=== PATIENT | male | born 1990 | race Caucasian/White ===

== ENCOUNTER 2018-09-10 05:41 | Emergency (ER) | payer OTHER ==
[~2018-09-10] VITALS: Ht 167.6 cm; Wt 63.5 kg
[2018-09-10 05:44] VITALS: BP 127/47
[2018-09-10] MEDS ORDERED: BACTRIM DS TAB1 EACH PO (06:15)
== END 2018-09-10 06:30 | disposition home or self-care (01) ==
LOC: ER 05:41
DX: L02.511 Cutaneous abscess of right hand (principal); F17.210 Nicotine dependence, cigarettes, uncomplicated; J45.909 Unspecified asthma, uncomplicated

== ENCOUNTER 2019-03-04 09:01 | Emergency (ER) | payer OTHER ==
[~2019-03-04] VITALS: Ht 167.6 cm; Wt 63.5 kg
[~2019-03-04 09:01] MED LIST: BACTRIM DS TAB1 EACH PO
[2019-03-04 10:17] LABS: ABSOLUTE NEUTROPHILS 12.9 thou/uL (1.4-8.2); BASOPHILS 0.4 % (0.0-2.0); EOSINOPHILS 0.2 % (0.0-3.0); HEMATOCRIT 42.2 % (42.0-52.0); HEMOGLOBIN 14.9 gm/dL (14.0-18.0); LYMPHOCYTES 3.5 % (24.0-44.0); MCH 30.9 pg (26.0-34.0); MCHC 35.2 g/dL (28.0-37.0); MCV 87.9 fL (80.0-100.0); MONOCYTES 11.9 % (1.0-8.0); PLATELET COUNT 159 thou/uL (150-400); RBC 4.81 mil/uL (4.50-6.00); RDW 13.5 % (10.5-14.5); WBC 15.3 thou/uL (4.0-11.0)
[2019-03-04 10:29] LABS: CALCIUM 9.4 mg/dL (8.5-10.1); CREATININE 1.2 mg/dL (0.7-1.3); POTASSIUM 4.4 mmol/L (3.5-5.1)
[2019-03-04 10:36] LABS: ALBUMIN 3.7 g/dL (3.4-5.0); DIRECT BILIRUBIN 0.2 mg/dL (<0.1-0.3); TOTAL PROTEIN 7.4 g/dL (6.4-8.2)
[2019-03-04 11:32] LABS: URINE BILIRUBIN NEGATIVE (Negative); URINE BLOOD NEGATIVE (Negative); URINE CLARITY CLEAR; URINE COLOR YELLOW; URINE GLUCOSE-RANDOM* NEGATIVE (Negative); URINE KETONES NEGATIVE (Negative); URINE LEUKOCYTES-REFLEX NEGATIVE (Negative); URINE NITRITE-REFLEX NEGATIVE (Negative); URINE PROTEIN (DIPSTICK) TRACE (Negative)
[2019-03-04 11:40] LABS: AMP/METHAMP POSITIVE (Negative); BARBITURATES Negative (Negative); BENZODIAZEPINES Negative (Negative); COCAINE Negative (Negative); METHADONE Negative (Negative); OPIATES Negative (Negative); PCP Negative (Negative)
[2019-03-04 11:53] VITALS: BP 122/62
[2019-03-04] MEDS ORDERED: MOBIC15 MG PO (12:13)
== END 2019-03-04 13:42 | disposition home or self-care (01) ==
LOC: ER 09:01
PROVIDERS: Emergency Medicine
DX: K59.00 Constipation, unspecified (principal); M54.5 Low back pain; F17.210 Nicotine dependence, cigarettes, uncomplicated; J45.909 Unspecified asthma, uncomplicated

== ENCOUNTER 2019-03-06 05:51 | Emergency (ER) | payer OTHER ==
[~2019-03-06] VITALS: Ht 167.6 cm; Wt 63.5 kg
[~2019-03-06 05:51] MED LIST changes: +MOBIC15 MG PO
[2019-03-06 06:42] LABS: HEMATOCRIT 44.7 % (42.0-52.0); HEMOGLOBIN 15.7 gm/dL (14.0-18.0); MCH 30.8 pg (26.0-34.0); MCHC 35.1 g/dL (28.0-37.0); MCV 87.8 fL (80.0-100.0); PLATELET COUNT 144 thou/uL (150-400); WBC 8.7 thou/uL (4.0-11.0)
[2019-03-06 06:47] LABS: URINE BILIRUBIN NEGATIVE (Negative); URINE BLOOD NEGATIVE (Negative); URINE CLARITY CLEAR; URINE COLOR YELLOW; URINE GLUCOSE-RANDOM* NEGATIVE (Negative); URINE KETONES NEGATIVE (Negative); URINE LEUKOCYTES-REFLEX NEGATIVE (Negative); URINE NITRITE-REFLEX NEGATIVE (Negative); URINE PROTEIN (DIPSTICK) 2+ (Negative); URINE SPECIFIC GRAVITY >= 1.030 (1.005-1.035); URINE UROBILINOGEN 0.2 E.U./dl (0.2-1.0)
[2019-03-06 06:50] LABS: CALCIUM 9.4 mg/dL (8.5-10.1); CREATININE 1.4 mg/dL (0.7-1.3)
[2019-03-06 07:12] LABS: ABSOLUTE NEUTROPHILS 7.4 thou/uL (1.4-8.2); ANISOCYTOSIS SLIGHT
[2019-03-06 07:26] LABS: CASTS None Seen /LPF (None Seen); CRYSTALS None Seen /LPF (None Seen); SQUAMOUS 0-3 Few /LPF (0-3)
[2019-03-06 07:27] LABS: BACTERIA-REFLEX 1-9 Few /HPF (None Seen); MUCUS 4-6 Moderate strn/LPF (None Seen); URINE RBC None Seen /HPF (0-2); URINE WBC-REFLEX 6-15 Few /HPF (0-5)
[2019-03-06 10:41] LABS: ALBUMIN 3.1 g/dL (3.4-5.0); DIRECT BILIRUBIN < 0.1 mg/dL (<0.1-0.3); SGOT 31 U/L (15-37); SGPT 35 U/L (30-65); TOTAL BILIRUBIN 0.4 mg/dL (<0.1-1.0); TOTAL PROTEIN 7.6 g/dL (6.4-8.2)
[2019-03-06 13:27] VITALS: BP 103/51
[2019-03-06 15:23] LABS: AMP/METHAMP POSITIVE (Negative); BARBITURATES Negative (Negative); BENZODIAZEPINES Negative (Negative); COCAINE Negative (Negative); METHADONE Negative (Negative); OPIATES Negative (Negative); PCP Negative (Negative)
--- NOTE | 2019-03-06 23:56 | NUR ---
Critical results called to [facility] 6th floor and spoke with Benji. Lab called and anerobic and aerobic cultures from 0615 both with Gram positive cocci. Patient in room 6232.
--- NOTE | 2019-03-07 04:53 | NUR ---
[id number] on 03/07/19 Lab called and critical results called on second set of blood cultures aerobic and anerobic with gram positive cocci. Patient was transferred to [facility] on 6th floor, called to Nurse Aguilar at [facility].
== END 2019-03-06 13:30 | disposition short-term general hospital (02) ==
LOC: ER 05:51
PROVIDERS: Emergency Medicine
DX: G06.2 Extradural and subdural abscess, unspecified (principal); F15.10 Other stimulant abuse, uncomplicated; R11.10 Vomiting, unspecified; J45.909 Unspecified asthma, uncomplicated; F17.210 Nicotine dependence, cigarettes, uncomplicated; M54.5 Low back pain; M54.6 Pain in thoracic spine; Z79.899 Other long term (current) drug therapy